=== PATIENT | male | born 1960 | race Caucasian/White ===

== ENCOUNTER 2017-12-03 17:08 | Emergency (ER) | payer OTHER ==
[2017-12-03] MEDS ORDERED: BACIGUENT PACKET TP ONE (17:52)
[2017-12-03] MEDS ORDERED: XYLOCAINE 1% HCL 20 ML MDV IJ ONE (17:52)
[2017-12-03] MEDS ORDERED: Adacel Vial IM ONE ×2 (17:52→18:09)
--- NOTE | 2017-12-03 17:57 | ERPHSYRPT ---
- History of Present Illness Time Seen by Provider: 12/03/17 17:53 Source: patient Exam Limitations: no limitations Physician History: This is a 57-year-old white male arrives with complaint of a fishhook embedded in his left thumb since 4:15 this afternoon. Patient states he was fishing when he got the hook embedded in his left thumb. He denies any other complaints. He has a trouble hook with one of the hooks embedded in his left thumb. Past medical history includes diabetes and high blood pressure. Social history patient chews tobacco he denies alcohol or illicit drug use. Occurred: this afternoon (4:15 this afternoon) Method of Injury: sports injury (fishhook embedded into left thumb) Severity of Pain-Max: mild Severity of Pain-Current: mild Extremities Pain Location: thumb: left Modifying Factors: Improves With: nothing Associated Symptoms: none Allergies/Adverse Reactions: No Known Drug Allergies Allergy (Unverified 12/03/17 17:56) Home Medications: Allopurinol 300 mg [Zyloprim 300 mg] 300 mg PO DAILY 12/03/17 [History] Celecoxib 100 mg [celeBREX 100 MG] 100 mg PO DAILY 12/03/17 [History] Fenofibrate Nanocrystallized [Fenofibrate] 145 mg PO DAILY 12/03/17 [History] Insulin Aspart [NovoLOG Insulin] 1 unit SQ UD 12/03/17 [History] Insulin Glargine,Hum.rec.anlog [Basaglar Kwikpen U-100] 100 unit SQ DAILY [History] Linagliptin [Tradjenta] 5 mg PO DAILY 12/03/17 [History] Potassium Chloride [Klor-Con M20] 20 meq PO DAILY 12/03/17 [History] glyBURIDE [Glyburide] 5 mg PO BID 12/03/17 [History] - Review of Systems Constitutional: No Fever, No Chills Eyes: No Symptoms Ears, Nose, & Throat: No Symptoms Respiratory: No Cough, No Dyspnea Cardiac: No Chest Pain, No Edema, No Syncope Abdominal/Gastrointestinal: No Abdominal Pain, No Nausea, No Vomiting, No Diarrhea Genitourinary Symptoms: No Dysuria Musculoskeletal: Other (fishhook embedded in left thumb) Skin: Other (Gary embedded in left thumb) Neurological: No Dizziness, No Focal Weakness, No Sensory Changes Psychological: No Symptoms Endocrine: No Symptoms All Other Systems: Reviewed and Negative - Nursing Vital Signs Nursing Vital Signs: Initial Vital Signs Temperature 98.3 F 12/03/17 17:52 Pulse Rate 81 12/03/17 17:52 Respiratory Rate 16 12/03/17 17:52 Blood Pressure 144/94 12/03/17 17:52 O2 Sat by Pulse Oximetry 96 12/03/17 17:52 Pain Scale Pain Intensity 0 - Physical Exam General Appearance: mild distress Eyes, Ears, Nose, Throat Exam: normal ENT inspection Neck Exam: non-tender, supple Cardiovascular/Respiratory Exam: chest non-tender, normal breath sounds, regular rate/rhythm, no respiratory distress Abdominal Exam: non-tender, No guarding Back Exam: normal inspection, No vertebral tenderness Shoulder Exam: normal inspection, non-tender, no evidence of injury, normal ROM Elbow/Forearm Exam: normal inspection, non-tender, no evidence of injury, normal ROM Wrist Exam: normal inspection, non-tender, no evidence of injury, normal ROM Hand Exam: normal ROM, No normal inspection (Gary embedded in left thumb) Neuro/Tendon Exam: normal sensation, normal motor functions Mental Status Exam: alert, oriented x 3, cooperative Skin Exam: normal color, other (Gary embedded left thumb) SpO2 Interpretation: normal - Course Nursing assessment & vital signs reviewed: Yes Ordered Tests: Active Orders 24 hr Category Date Time Status Wound Care STAT Care 12/03/17 17:52 Active Medication Summary Discontinued Medications Generic Name Dose Route Start Last Admin Trade Name Freq PRN Reason Stop Dose Admin Bacitracin Zinc 0.9 gm 12/03/17 17:52 12/03/17 18:15 Baciguent Packet TP 12/03/17 17:53 0.9 gm STAT ONE Administration Bacitracin Zinc Confirm 12/03/17 18:08 Baciguent Packet Administered 12/03/17 18:09 Dose 1 gm .ROUTE .STK-MED ONE Diphtheria/Tetanus/Acell Pertussis 0.5 ml 12/03/17 17:52 12/03/17 18:14 Adacel Vial IM 12/03/17 17:53 0.5 ml .ONCE ONE Administration Diphtheria/Tetanus/Acell Pertussis Confirm 08/02/18 18:09 Adacel Vial Administered 12/03/17 18:10 Dose 0.5 ml IM .STK-MED ONE Lidocaine HCl 5 ml 12/03/17 17:52 12/03/17 18:14 Xylocaine 1% Hcl 20 Ml Mdv IJ 12/03/17 17:53 5 ml STAT ONE Administration Lidocaine HCl Confirm 12/03/17 18:09 Xylocaine 1% Hcl 20 Ml Mdv Administered 12/03/17 18:10 Dose 5 ml .ROUTE .STK-MED ONE - Progress Progress: improved Progress Note: 12/03/17 18:28 57-year-old white male arrives with complaint of fish hook embedded into his left thumb since 4:15 this afternoon. He denies other complaints. Fish hook removal left thumb. Left thumb cleansed by the patient's nurse. Left thumb anesthetized with 1% lidocaine. Side cutters used to clip the other 2 hooks off of the treble hook. Pressure is placed on the proximal end of the hook in a downward direction. And a hemostat is used to pull the hook out of the thumb. Patient neurovascular intact after removal. Area cleansed and bacitracin is applied. DTaP was ordered. - Departure Time of Disposition: 18:31 Departure Disposition: Home Clinical Impression: fishhook removal left thumb Fish hook injury of left thumb Qualifiers: Encounter type: initial encounter Qualified Code(s): S69.92XA - Unspecified injury of left wrist, hand and finger(s), initial encounter Condition: Fair Critical Care Time: No Additional Instructions: Return home. Bacitracin to area until healed. Clean daily and apply bacitracin. Follow-up with your family doctor or return if problems. Return for acute distress or for severe symptoms.
[2017-12-03] MEDS ORDERED: BACIGUENT PACKET ONE (18:08)
[2017-12-03] MEDS ORDERED: XYLOCAINE 1% HCL 20 ML MDV ONE (18:09)
[2017-12-03 18:34] VITALS: BP 102/75; PULSE 66; O2SAT 100
== END 2017-12-03 18:38 | disposition home or self-care (01) ==
LOC: ED 17:08
DX: S60.352A Superficial foreign body of left thumb, initial encounter (principal); W45.8XXA Other foreign body or object entering through skin, initial encounter; W22.8XXA Striking against or struck by other objects, initial encounter; Y93.89 Activity, other specified; Y92.89 Other specified places as the place of occurrence of the external cause
CPT/HCPCS: 90471; 90715; 99284; A9270-GY